=== PATIENT | male | born 2000 | race Caucasian/White ===

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

== ENCOUNTER 2018-01-05 08:42 | Observation (INO) | payer SELFPAY ==
[~2018-01-05] VITALS: Ht 185.4 cm; Wt 76.4 kg
[2018-01-05] MEDS ORDERED: NS IV 1000 ML 1,000 ML IV ONE (09:34)
[2018-01-05 09:58] LABS: BASOPHILS # (AUTO) 0.1 10^3/uL (0.0-0.1); BASOPHILS % (AUTO) 0 % (0-10); EOSINOPHILS % (AUTO) 0 % (0-10); HEMATOCRIT 42 % (40-54); LYMPHOCYTES # (AUTO) 1.3 X 10^3 (1.0-4.0); LYMPHOCYTES % (AUTO) 4 % (12-44); MEAN CORPUSCULAR HEMOGLOBIN 31 PG (25-34); MEAN CORPUSCULAR HGB CONC 36 G/DL (32-36); MEAN CORPUSCULAR VOLUME 86 FL (80-99); MEAN PLATELET VOLUME 9.8 FL (7.4-10.4); MONOCYTES # (AUTO) 2.1 X 10^3 (0.0-1.0); MONOCYTES % (AUTO) 6 % (0-12); NEUTROPHILS # (AUTO) 34.1 X 10^3 (1.8-7.8); NEUTROPHILS % (AUTO) 91 % (42-75); PLATELET COUNT 225 10^3/uL (130-400); RED BLOOD COUNT 4.88 10^6/uL (4.35-5.85); RED CELL DISTRIBUTION WIDTH 13.3 % (10.0-14.5)
[2018-01-05 09:59] LABS: WHITE BLOOD COUNT 37.6 10^3/uL (4.3-11.0)
[2018-01-05] MEDS ORDERED: HURRICAINE EXT TUBE (BENZOCAINE) ONE (10:07)
[2018-01-05] MEDS: LIDOCAINE 1% INJ 20 ML 20 ML VIAL ONE ×2 (10:10→10:30)
[2018-01-05] MEDS ORDERED: LIDOCAINE/EPI 2% 1:100,00 (XYLOCAINE) 20 ML VIAL ONE (10:14)
[2018-01-05 10:22] LABS: ALANINE AMINOTRANSFERASE 13 U/L (0-55); ALBUMIN 4.4 GM/DL (3.2-4.5); ALKALINE PHOSPHATASE 52 U/L (40-136); BILIRUBIN,TOTAL 1.8 MG/DL (0.1-1.0); BUN/CREATININE RATIO 15; CALCIUM 9.8 MG/DL (8.5-10.1); CARBON DIOXIDE 23 MMOL/L (21-32); CHLORIDE 102 MMOL/L (98-107); CREATININE SERUM 0.73 MG/DL (0.60-1.30); GFR ESTIMATED > 60; GLUCOSE 96 MG/DL (70-105); POTASSIUM 4.6 MMOL/L (3.6-5.0); SODIUM 134 MMOL/L (135-145); TOTAL PROTEIN 7.5 GM/DL (6.4-8.2)
[2018-01-05 10:35] LABS: BAND NEUTROPHILS 2 %; BASOPHILS % (MANUAL) 0 %; EOSINOPHILS % (MANUAL) 0 %; LYMPHOCYTES % (MANUAL) 6 %; MONOCYTES % (MANUAL) 6 %; NEUTROPHILS % (MANUAL) 86 %; RBC MORPH NORMAL
[2018-01-05] MEDS ORDERED: DEXAMETHASONE PF 10 MG/ML (DECADRON) VIAL IV STA (10:43)
[2018-01-05] MEDS ORDERED: CEFUROXIME INJECTION 1,500 MG in NS (IVPB) 50 ML IV ONE (10:45)
--- NOTE | 2018-01-05 10:59 | ED EENT ---
History of Present Illness General Chief Complaint: Oral/Throat Problems Stated Complaint: THROAT ISSUES Nursing Triage Note: ARRIVED VIA AMB TO ROOM 05. STATES HE WAS SEEN HERE TWO WEEKS AGO WITH AN ABSCESS IN HIS THROAT. HAS FINISHED HIS ABX BUT STATES ITS BACK. Source: patient Exam Limitations: no limitations History of Present Illness Date Seen by Provider: Jan 05, 2018 Time Seen by Provider: 09:30 Initial Comments Here with markedly increasing swelling in his throat. He was seen previously for peritonsillar abscess and was admitted to the hospital. Subsequently released and was on outpatient antibiotics which she finished approximately 2-3 days ago. Was doing much better until last night when he noted that the swelling was markedly increasing and that worse until this morning when it became more unbearable. He is able to swallow fluids but unable to swallow food. Denies fever. Did have this abscess previously drained on previous visit. Timing/Duration: abrupt Severity: moderate Location: throat Prearrival Treatment: prescription meds Associated Symptoms: No cough, No fever, No nasal congestion/drainage, No poor fluid intake; poor solids intake, sore throat, voice change Allergies and Home Medications Allergies Coded Allergies: No Known Drug Allergies (Unverified , 10/29/11) Home Medications No Active Prescriptions or Reported Meds Patient Home Medication List Home Medication List Reviewed: Yes Review of Systems Constitutional: see HPI; No chills, No fever Eyes: No Symptoms Reported Ears: No Symptoms Reported Nose: no symptoms reported Mouth: no symptoms reported Throat: see HPI, pain, swelling, muffled, painful swallowing Respiratory: no symptoms reported Cardiovascular: no symptoms reported All Other Systems Reviewed Negative Unless Noted: Yes Past Tqobcvz-Ugojdz-Vurpgl Hx Past Med/Social Hx: Reviewed Nursing Past Med/Soc Hx Patient Social History Alcohol Use: Denies Use Recreational Drug Use: No Smoking Status: Never a Smoker Type Used: Cigarettes Recent Foreign Travel: No Contact w/Someone Who Travel: No Recent Infectious Disease Expo: No Recent Hopitalizations: No Seasonal Allergies Seasonal Allergies: No Past Medical History Surgeries: No Respiratory: No Cardiac: No Neurological: No Genitourinary: No Gastrointestinal: No Musculoskeletal: No Endocrine: No HEENT: No Cancer: No Psychosocial: No Integumentary: No Blood Disorders: No Family Medical History Reviewed Nursing Family Hx No Pertinent Family Hx Physical Exam Vital Signs Vital Signs - First Documented 01/05/18 08:55 Temp 99.3 Pulse 101 Resp 18 B/P (MAP) 139/97 General Appearance: WD/WN, no apparent distress Eyes: bilateral eye normal inspection, bilateral eye PERRL, bilateral eye EOMI Ears: bilateral ear auricle normal, bilateral ear canal normal, bilateral ear TM normal Nose: normal inspection Mouth/Throat: pharynx swelling, pharynx tenderness, tonsillar exudate, tonsillar swelling, voice changes, other (swelling to the left tonsillar pillar that encroaches on to the soft and hard palate on the left.) Neck: full range of motion, supple, lymphadenopathy (L) Cardiovascular: no murmur, tachycardia Respiratory: lungs clear, normal breath sounds Gastrointestinal: non tender, soft Neurologic/Psychiatric: alert, oriented x 3 Skin: normal color, warm/dry Progress/Results/Core Measures Results/Orders Lab Results Laboratory Tests Test 01/05/18 09:49 Range/Units White Blood Count 37.6 *H 4.3-11.0 10^3/uL Red Blood Count 4.88 4.35-5.85 10^6/uL Hemoglobin 15.0 13.3-17.7 G/DL Hematocrit 42 40-54 % Mean Corpuscular Volume 86 80-99 FL Mean Corpuscular Hemoglobin 31 25-34 PG Mean Corpuscular Hemoglobin Concent 36 32-36 G/DL Red Cell Distribution Width 13.3 10.0-14.5 % Platelet Count 225 130-400 10^3/uL Mean Platelet Volume 9.8 7.4-10.4 FL Neutrophils (%) (Auto) 91 H 42-75 % Lymphocytes (%) (Auto) 4 L 12-44 % Monocytes (%) (Auto) 6 0-12 % Eosinophils (%) (Auto) 0 0-10 % Basophils (%) (Auto) 0 0-10 % Neutrophils # (Auto) 34.1 H 1.8-7.8 X 10^3 Lymphocytes # (Auto) 1.3 1.0-4.0 X 10^3 Monocytes # (Auto) 2.1 H 0.0-1.0 X 10^3 Eosinophils # (Auto) 0.0 0.0-0.3 10^3/uL Basophils # (Auto) 0.1 0.0-0.1 10^3/uL Neutrophils % (Manual) 86 % Lymphocytes % (Manual) 6 % Monocytes % (Manual) 6 % Eosinophils % (Manual) 0 % Basophils % (Manual) 0 % Band Neutrophils 2 % Blood Morphology Comment NORMAL Sodium Level 134 L 135-145 MMOL/L Potassium Level 4.6 3.6-5.0 MMOL/L Chloride Level 102 98-107 MMOL/L Carbon Dioxide Level 23 21-32 MMOL/L Anion Gap 9 5-14 MMOL/L Blood Urea Nitrogen 11 7-18 MG/DL Creatinine 0.73 0.60-1.30 MG/DL Estimat Glomerular Filtration Rate > 60 BUN/Creatinine Ratio 15 Glucose Level 96 70-105 MG/DL Calcium Level 9.8 8.5-10.1 MG/DL Total Bilirubin 1.8 H 0.1-1.0 MG/DL Aspartate Amino Transf (AST/SGOT) 11 5-34 U/L Alanine Aminotransferase (ALT/SGPT) 13 0-55 U/L Alkaline Phosphatase 52 40-136 U/L C-Reactive Protein High Sensitivity 6.19 H 0.00-0.50 MG/DL Total Protein 7.5 6.4-8.2 GM/DL Albumin 4.4 3.2-4.5 GM/DL My Orders Orders - LANCE MENDIOLA MD Cbc With Automated Diff (01/05/18 09:34) Comprehensive Metabolic Panel (01/05/18 09:34) Hs C Reactive Protein (01/05/18 09:34) Saline Lock/Iv-Start (01/05/18 09:34) Ns Iv 1000 Ml (Sodium Chloride 0.9%) (01/05/18 09:34) Manual Differential (01/05/18 09:49) Benzocaine Extension Tube (Hurricaine Ex (01/05/18 10:07) Lidocaine 1% Inj 20 Ml (Xylocaine 1% Inj (01/05/18 10:08) Lidocaine/Epi 2% 1:100,000 (Xylocaine/Ep (01/05/18 10:14) Dexamethasone Pf Injection (Decadron Pf (01/05/18 10:43) Cefuroxime Injection (Zinacef Injection) (01/05/18 10:45) Medications Given in ED Current Medications Medications Dose Ordered Sig/Racquel Route Start Time Stop Time Status Last Admin Dose Admin Benzocaine 1 ea STK-MED ONCE .ROUTE 01/05/18 10:07 01/05/18 10:10 DC 01/05/18 10:11 1 EA Lidocaine/ Epinephrine 20 ml STK-MED ONCE .ROUTE 01/05/18 10:14 01/05/18 10:16 DC 01/05/18 10:29 20 ML Sodium Chloride 1,000 ml @ 0 mls/hr Q0M ONCE IV 01/05/18 09:34 01/05/18 09:36 DC 01/05/18 10:10 1,000 MLS/HR Vital Signs/I&O 01/05/18 08:55 Temp 99.3 Pulse 101 Resp 18 B/P (MAP) 139/97 Progress Progress Note : Progress Note Seen and evaluated. I did call and talked with Dr. Steele. 0953. 1020: Dr. Steele is in the ER and is performing I&D of the abscess. 1035: Dr. Steele will admit. Cefuroxime 1.5 g IV and Decadron 10 mg IV ordered. Admit observation status. Patient and family agree with plan. Departure Impression Primary Impression: Peritonsillar abscess Disposition: ADMITTED INPATIENT Condition: Stable Admissions Decision to Admit Reason: Admit from ER (General) Decision to Admit/Date: Jan 05, 2018 Time/Decision to Admit Time: 10:35 Departure-Patient Inst. Referrals: NO,LOCAL PHYSICIAN (PCP/Family) Primary Care Physician Scripts No Active Prescriptions or Reported Meds LANCE MENDIOLA MD Jan 05, 2018 10:59
[2018-01-05 11:40] VITALS: BP 122/66
[2018-01-05] MEDS ORDERED: HYDROcodone/APAP 7.5MG-325 MG/15 ML (LORTAB) UDC PO PRN (12:00)
[2018-01-05] MEDS ORDERED: CATHETER FLUSH 10 ML SYR IV PRN (12:00)
[2018-01-05] MEDS ORDERED: DEXAMETHASONE 10 MG/ML (DECADRON) 1 ML VIAL IV SCH (12:00)
[2018-01-05 12:01] VITALS: BP 128/78
[2018-01-05] MEDS ORDERED: RT-ALBUTEROL/IPRATROPIUM 3 ML (DUONEB) VIAL INH PRN (12:15)
[2018-01-05] MEDS: NS IV 1000 ML 1,000 ML IV SCH (12:56)
[2018-01-05 16:00] VITALS: BP 125/56
[2018-01-05] MEDS: DEXAMETHASONE 10 MG/ML (DECADRON) 1 ML VIAL IV SCH ×2 (18:27→23:51)
[2018-01-05 20:00] VITALS: BP 102/56
[2018-01-05] MEDS: CEFUROXIME 1.5 GM/NS 50 ML IVPB IV SCH ×2 (20:45)
[2018-01-05 23:54] VITALS: BP 118/72
[2018-01-06] MEDS: NS IV 1000 ML 1,000 ML IV SCH ×3 (03:30→18:22)
[2018-01-06 04:00] VITALS: BP 110/54
[2018-01-06] MEDS: DEXAMETHASONE 10 MG/ML (DECADRON) 1 ML VIAL IV SCH ×3 (06:03→21:41)
[2018-01-06 06:30] LABS: BASOPHILS % (AUTO) 0 % (0-10); EOSINOPHILS % (AUTO) 0 % (0-10); HEMATOCRIT 41 % (40-54); HEMOGLOBIN 14.4 G/DL (13.3-17.7); LYMPHOCYTES # (AUTO) 0.8 X 10^3 (1.0-4.0); LYMPHOCYTES % (AUTO) 3 % (12-44); MEAN CORPUSCULAR HEMOGLOBIN 30 PG (25-34); MEAN CORPUSCULAR HGB CONC 35 G/DL (32-36); MEAN CORPUSCULAR VOLUME 85 FL (80-99); MONOCYTES # (AUTO) 0.3 X 10^3 (0.0-1.0); MONOCYTES % (AUTO) 1 % (0-12); NEUTROPHILS # (AUTO) 26.7 X 10^3 (1.8-7.8); NEUTROPHILS % (AUTO) 96 % (42-75); PLATELET COUNT 235 10^3/uL (130-400); RED BLOOD COUNT 4.84 10^6/uL (4.35-5.85); RED CELL DISTRIBUTION WIDTH 13.2 % (10.0-14.5); WHITE BLOOD COUNT 27.8 10^3/uL (4.3-11.0)
[2018-01-06] MEDS: CEFUROXIME 1.5 GM/NS 50 ML IVPB IV SCH ×6 (06:42→22:21)
[2018-01-06 06:45] LABS: BUN/CREATININE RATIO 15; CALCIUM 9.6 MG/DL (8.5-10.1); CARBON DIOXIDE 20 MMOL/L (21-32); CHLORIDE 105 MMOL/L (98-107); CREATININE SERUM 0.67 MG/DL (0.60-1.30); GFR ESTIMATED > 60; GLUCOSE 176 MG/DL (70-105); POTASSIUM 4.5 MMOL/L (3.6-5.0); SODIUM 135 MMOL/L (135-145)
--- NOTE | 2018-01-06 07:05 | Progress Note-Standard ---
Standard Progress Note Progress Notes/Assess & Plan Date Seen by Provider: Jan 06, 2018 Time Seen by Provider: 06:30 Progress/Assessment & Plan LZT-Rcxwn-Clkgalg/Physical-ER NOTE cc: REcurrent Left Peritonsillar Abscess HPI: Patient cici in [facility] over two weeks ago with a left peritonsillar abscess. It was drained. He went home with oral ceftin and prednisone. While on the antibiotics he did well. Two days after finishing the antibiotics he walker had recurrent symptoms on the left side. It has progressively worsened. He presented to [facility] ER this am with marked swelling and a recurrence of his abscess. WBC-37. This is the second abscess he has had. PMHX: unremarkable ALL-NKDA Meds-none currently Exam: EArs-clear Nose-no drainage Oral CAvity-mild trismus-marked swelling of the soft palate and tonsil in general-obvious abscess formation noted. Neck-tender left neck nodes. Procedure: Consent obtained. [facility] oral cvity was anesthetized with hurricane spray. Further anesthesia was obtained iwth 2% xylocaine iwth 1:100,000 epinephrine injectd into the region of the abscess. A protected 11 blade was used to make the incision. Immediately pus was present. A tonsil clamp was then used to widely open the abscess cavity both superiorly and inferiorly. A large amount of pus was [id number] in what appeared to be two abscess cavities one superiorly and one more inferiorly. Minimal bleeding occurred. IMP: Large REcurrent left peritonsillar abscess Rec: 1. The abscess was drained as above. ADmission for IV cefuroxime and decadron was recommended. REpeat CBC in am. T/A diet as tolerated 2. Since this has been recurrent will need to treat and then once better would recommend removal fo the tonsils-probaly late January- Xin-01/06-630am Doing much better -less pain with less trismus-able to tolerate diet cbc pending this am OC-no trismus-tonsil back in it's normal position-minimal exudate seen Neck-less tender IMP-Recurrent Left PEritonsillar Abscess REc: 1. would rec 24 more hours of IV antibiotic and steroids then home tomorrow as long as doing well. Will need adama on antibiotics and steroids-since recurrent rec tonsillectomy once better-probably in late sjfc-CCR-euea done wit [facility] antibiotics to [place]ali[place] the surgery ARMIDA MOE MD Jan 06, 2018 7:05 am
[2018-01-06 08:00] VITALS: BP 110/54
[2018-01-06] MEDS: NICOTINE 14 MG (NICODERM) PATCH TD SCH (10:52)
[2018-01-06 12:00] VITALS: BP 110/58
[2018-01-06] MEDS ORDERED: DEXAMETHASONE 4 MG/ML SDV (DECADRON) IV SCH (14:00)
[2018-01-06 15:27] VITALS: BP 120/65
[2018-01-06 19:25] VITALS: BP 114/55
[2018-01-07 00:04] VITALS: BP 121/59
[2018-01-07 04:19] VITALS: BP 97/46
[2018-01-07] MEDS: DEXAMETHASONE 10 MG/ML (DECADRON) 1 ML VIAL IV SCH (05:13)
[2018-01-07] MEDS: CEFUROXIME 1.5 GM/NS 50 ML IVPB IV SCH ×2 (06:07)
--- NOTE | 2018-01-07 06:08 | Progress Note-Standard ---
Standard Progress Note Progress Notes/Assess & Plan Date Seen by Provider: Jan 07, 2018 Time Seen by Provider: 06:00 Progress/Assessment & Plan XME-Dtenu-Nlkinix/Physical-ER NOTE cc: REcurrent Left Peritonsillar Abscess HPI: Patient cici in [facility] over two weeks ago with a left peritonsillar abscess. It was drained. He went home with oral ceftin and prednisone. While on the antibiotics he did well. Two days after finishing the antibiotics he walker had recurrent symptoms on the left side. It has progressively worsened. He presented to [facility] ER this am with marked swelling and a recurrence of his abscess. WBC-37. This is the second abscess he has had. PMHX: unremarkable ALL-NKDA Meds-none currently Exam: EArs-clear Nose-no drainage Oral CAvity-mild trismus-marked swelling of the soft palate and tonsil in general-obvious abscess formation noted. Neck-tender left neck nodes. Procedure: Consent obtained. [facility] oral cvity was anesthetized with hurricane spray. Further anesthesia was obtained iwth 2% xylocaine iwth 1:100,000 epinephrine injectd into the region of the abscess. A protected 11 blade was used to make the incision. Immediately pus was present. A tonsil clamp was then used to widely open the abscess cavity both superiorly and inferiorly. A large amount of pus was [id number]-[id number] in what appeared to be two abscess cavities one superiorly and one more inferiorly. Minimal bleeding occurred. IMP: Large REcurrent left peritonsillar abscess Rec: 1. The abscess was drained as above. ADmission for IV cefuroxime and decadron was recommended. REpeat CBC in am. T/A diet as tolerated 2. Since this has been recurrent will need to treat and then once better would recommend removal fo the tonsils-probaly late January- Xin-01/06-630am Doing much better -less pain with less trismus-able to tolerate diet cbc pending this am OC-no trismus-tonsil back in it's normal position-minimal exudate seen Neck-less tender IMP-Recurrent Left PEritonsillar Abscess REc: 1. would rec 24 more hours of IV antibiotic and steroids then home tomorrow as long as doing well. Will need adama on antibiotics and steroids-since recurrent rec tonsillectomy once better-probably in late omqe-VFI-afvo done wit [facility] antibiotics to [place] the surgery ENT-Genesis doing better WBC-decreaeing back toward normal pain improved op-no evidence of recurrent swelling-able to shamir diet will discharge after brakfast discharge prescriptions in chart RTC-2 weeks plan on tonsillectomy later in January ARMIDA MOE MD Jan 07, 2018 6:08 am
[2018-01-07] MEDS ORDERED: PRD20T PO (07:54)
[2018-01-07] MEDS ORDERED: CEFU250T80 PO (07:54)
[2018-01-07 08:00] VITALS: BP 107/56
[2018-01-07] MEDS: NICOTINE 14 MG (NICODERM) PATCH TD SCH (08:03)
[2018-01-07] MEDS ORDERED: PATCH REMOVAL TP SCH (08:59)
== END 2018-01-07 06:08 | disposition home or self-care (01) ==
LOC: EDUNIT# 08:42 → ER 08:44 → UNDOADMOB 10:39 → 4TH 10:39 → UNDODISOB 01-07 08:47
PROVIDERS: ADMIT Otolaryngology Otolaryngology/Facial Plastic Surgery; ATTEND Otolaryngology Otolaryngology/Facial Plastic Surgery
DX: J36 Peritonsillar abscess (principal); F17.210 Nicotine dependence, cigarettes, uncomplicated
CPT/HCPCS: 36415; 80048; 80053; 85007; 85025; 85027; 86141; 94760; 96361; 96374; 96375; G0378

== ENCOUNTER 2018-01-27 10:33 | Emergency (ER) | payer SELFPAY ==
[~2018-01-27] VITALS: Ht 182.9 cm; Wt 72.6 kg
[~2018-01-27 10:33] MED LIST changes: +CEFU250T80 PO; +PRD20T PO
--- OUTSIDE RECORDS SUMMARY | 2018-01-27 10:37 | XMS REPORT | Continuity of Care Document ---
Author Author [facility] Address Unknown Phone Unavailable Allergies There is no data. Medications There is no data. Problems Date Dx Coded Attending Type Code Diagnosis Diagnosed By 03/14/2012 ELANA LOVE MD V58.69 taking high-risk medication 03/14/2012 V58.69 taking high- risk medication Procedures There is no data. Results There is no data. Encounters ACCT No. Visit Date/Time Discharge Status Pt. Type Provider Facility Loc./Unit Complaint [id number] 07/18/2012 16:18:00 07/18/2012 23:59:59 [facility] [place] [id number] 02/17/2012 00:00:00 02/17/2012 23:59:59 [facility] Outpatient
[2018-01-27 11:56] LABS: BASOPHILS % (AUTO) 0 % (0-10); EOSINOPHILS % (AUTO) 0 % (0-10); HEMATOCRIT 41 % (40-54); HEMOGLOBIN 14.4 G/DL (13.3-17.7); LYMPHOCYTES # (AUTO) 1.1 X 10^3 (1.0-4.0); LYMPHOCYTES % (AUTO) 10 % (12-44); MEAN CORPUSCULAR HEMOGLOBIN 31 PG (25-34); MEAN CORPUSCULAR HGB CONC 35 G/DL (32-36); MEAN CORPUSCULAR VOLUME 89 FL (80-99); MEAN PLATELET VOLUME 10.6 FL (7.4-10.4); MONOCYTES # (AUTO) 0.8 X 10^3 (0.0-1.0); MONOCYTES % (AUTO) 7 % (0-12); NEUTROPHILS # (AUTO) 9.7 X 10^3 (1.8-7.8); NEUTROPHILS % (AUTO) 83 % (42-75); PLATELET COUNT 132 10^3/uL (130-400); RED BLOOD COUNT 4.58 10^6/uL (4.35-5.85); RED CELL DISTRIBUTION WIDTH 14.4 % (10.0-14.5); WHITE BLOOD COUNT 11.7 10^3/uL (4.3-11.0)
--- NOTE | 2018-01-27 11:59 | ED EENT ---
History of Present Illness General Chief Complaint: Oral/Throat Problems Stated Complaint: THROAT ABCESS Nursing Triage Note: Pt reports sore throat starting 3 days ago. Pt reports this is his 3rd visit for same symptoms. pt had abscessed drained twice. Source: patient Exam Limitations: no limitations History of Present Illness Date Seen by Provider: Jan 27, 2018 Time Seen by Provider: 11:45 Initial Comments Patient is a 17-year-old male who presents to the emergency room with complaints of left peritonsillar abscess that started 3 days ago. Over the course of the month this is his third peritonsillar abscess on the left side. He has been admitted previously and had I&D's by Dr. Steele. While in the emergency room he stated that it has started to drain. He is spitting up purulent yellow discharge. There is no bleeding noted. Timing/Duration: other (3 days ago. ) Location: throat Prearrival Treatment: other Modifying Factors: Improves With Antibiotics Associated Symptoms: No facial pain/swelling, No fever, No sinus infection; sore throat; No voice change Allergies and Home Medications Allergies Coded Allergies: No Known Drug Allergies (Unverified , 01/05/18) Home Medications Cefuroxime Axetil 250 Mg Tablet, 250 MG PO BID Prescribed by: MAULKI WEATHERS on 01/07/18 0754 Cefuroxime Axetil 250 Mg Tablet, 250 MG PO BID Prescribed by: DENNYS KANG on 01/27/18 1312 Prednisone 20 Mg Tab, 20 MG PO UD TAKE 2 TABS FOR 4 DAYS, THEN TAKE 1 TAB FOR 4 DAYS Prescribed by: MAULIK WEATHERS on 01/07/18 0754 Prednisone 20 Mg Tab, 20 MG PO UD 3 tabs for 3 days 2 tabs for 3 days 1 tab for 3 days Prescribed by: DENNYS KANG on 01/27/18 1312 Patient Home Medication List Home Medication List Reviewed: Yes Review of Systems Constitutional: see HPI; No chills, No fever, No malaise, No weakness Throat: see HPI, pain, swelling, discharge; denies hoarse, denies muffled; painful swallowing; denies difficulty with fluids, denies previous injury All Other Systems Reviewed Negative Unless Noted: Yes Past Rnpkgoo-Jtaxnq-Chmyvo Hx Past Med/Social Hx: Reviewed Nursing Past Med/Soc Hx Patient Social History Alcohol Use: Denies Use Recreational Drug Use: No Smoking Status: Current Everyday Smoker Type Used: Cigarettes Recent Foreign Travel: No Contact w/Someone Who Travel: No Recent Infectious Disease Expo: No Recent Hopitalizations: No Seasonal Allergies Seasonal Allergies: No Past Medical History Surgeries: Yes Respiratory: No Cardiac: No Neurological: No Genitourinary: No Gastrointestinal: No Musculoskeletal: No Endocrine: No HEENT: No Cancer: No Psychosocial: Yes Integumentary: No Blood Disorders: No Family Medical History Reviewed Nursing Family Hx No Pertinent Family Hx Physical Exam Vital Signs Vital Signs - First Documented 01/27/18 01/27/18 10:41 13:52 Temp 98.3 Pulse 99 Resp 18 B/P (MAP) 119/69 Pulse Ox 100 O2 Delivery Room Air Height, Weight, BMI Height: 6'0" Weight: 160lbs. 6.0oz. 72.883631vf; 21.70 BMI Method:Stated General Appearance: WD/WN, no apparent distress Mouth/Throat: tonsillar exudate (the left peritonsillar abscess is open and draining. I believe this to be from previous I&D.), tonsillar swelling, uvula swelling (swelling and slight deviation to the right); No voice changes Cardiovascular: regular rate, rhythm, no edema, no gallop, no JVD, no murmur Respiratory: chest non-tender, lungs clear, normal breath sounds, no respiratory distress, no accessory muscle use Neurologic/Psychiatric: alert, normal mood/affect, oriented x 3 Progress/Results/Core Measures Results/Orders Lab Results My Orders Medications Given in ED Vital Signs/I&O Progress Progress Note : Time: 11:50 Progress Note I have seen and evaluated the patient. I spoke to Lydia Steele's nurse practitioner and she reports that she saw him on Tuesday and that there was no abscess at that time. She recommends a CT soft tissue of his neck with contrast and 10 mg of IV Decadron and 1/2 g of cefoxitin. Since the abscess is draining she does not believe that it is to be I&D. She recommends outpatient therapy Ceftin 250 mg twice a day for 10 days and prednisone 20 mg taper. 1300: The abscess is smaller than when he arrived. It continues to drain. He is receiving his IV antibiotics and has been instructed to take medication as directed. He agrees with plans of discharge. Departure Impression Primary Impression: Peritonsillar abscess Disposition: 01 HOME, SELF-CARE Condition: Stable/Unchanged Departure-Patient Inst. Decision time for Depature: 13:07 Referrals: ARMIDA STEELE MD NO,LOCAL PHYSICIAN (PCP) Primary Care Physician Patient Instructions: Peritonsillar Abscess, Adult (DC) Add. Discharge Instructions: Take medication as directed. Return back to the emergency room for increased swelling, shortness of breath, muffled hot potato voice, or any other concerns as needed. Follow up with Dr. Steele's office within 1 week for recheck. Call first thing Tuesday morning for appointment time. All discharge instructions reviewed with patient and/or family. Voiced understanding. Scripts Prednisone (Prednisone) 20 Mg Tab 20 MG PO UD, #18 TAB 3 tabs for 3 days 2 tabs for 3 days 1 tab for 3 days Prov: DENNYS KANG 01/27/18 Cefuroxime Axetil (Cefuroxime) 250 Mg Tablet 250 MG PO BID for 10 Days, #20 TAB Prov: DENNYS KANG 01/27/18 DENNYS KANG Jan 27, 2018 11:59
[2018-01-27 12:15] LABS: ALANINE AMINOTRANSFERASE 10 U/L (0-55); ALBUMIN 4.5 GM/DL (3.2-4.5); ALKALINE PHOSPHATASE 46 U/L (40-136); BILIRUBIN,TOTAL 1.4 MG/DL (0.1-1.0); BUN/CREATININE RATIO 10; CALCIUM 9.8 MG/DL (8.5-10.1); CARBON DIOXIDE 28 MMOL/L (21-32); CHLORIDE 105 MMOL/L (98-107); CREATININE SERUM 0.71 MG/DL (0.60-1.30); GFR ESTIMATED > 60; GLUCOSE 101 MG/DL (70-105); POTASSIUM 4.3 MMOL/L (3.6-5.0); SODIUM 138 MMOL/L (135-145); TOTAL PROTEIN 7.1 GM/DL (6.4-8.2)
[2018-01-27] MEDS ORDERED: NS 250 ML (IVPB) BAG IV ONE (12:30)
[2018-01-27] MEDS ORDERED: IOHEXOL 350 MG/ML 100 ML (OMNIPAQUE 350) VIAL IV ONE (12:30)
[2018-01-27] MEDS ORDERED: CEFUROXIME INJECTION 1,500 MG in NS (IVPB) 50 ML IV ONE (12:45)
[2018-01-27] MEDS ORDERED: DEXAMETHASONE 10 MG/ML (DECADRON) 1 ML VIAL IV ONE (12:45)
--- NOTE | 2018-01-27 12:53 | Diagnostic Imaging Report ---
PROCEDURE: CT neck soft tissue with contrast. TECHNIQUE: Multiple contiguous axial images were obtained through the neck after the administration of contrast. INDICATION: Tonsillar abscess, neck pain. COMPARISON: Exam compared to 12/23/2017. FINDINGS: Left peritonsillar abscess in axial plane today measures 2.8 x 1.9 cm with roughly 2.9 cm cephalocaudal extent on the reconstruction views. Its previous dimensions were 3.3 x 2.1 x 4.8 cm respectively reflects mild interval reduction in size. Thickening of the uvula eccentric to the left is unchanged with unchanged rightward displacement of the gene and upper hypopharynx. The vocal folds and aryepiglottic folds are unremarkable. The infra-laryngeal trachea is widely patent. Small amount of edema or fluid tracking caudally along the retropharyngeal space is slightly less extensive than on prior. No new fluid collection is found. Some reactive cervical lymphadenopathy in the left neck shows a mild interval reduction. No bony destruction. No findings of intrathoracic or superior mediastinal extension of infection. No evidence for intracerebral extension. IMPRESSION: Peritonsillar left-sided abscess is smaller than on prior with decreased edema or fluid tracking caudally along the retropharyngeal space. Similar mass effect upon the airway without involvement of the vocal folds or epiglottis. Cervical lymphadenopathy, left greater than right, shows a mild reduction. No bony destruction. No findings suggestive of intracranial or thoracic extension of infection. Dictated by: Dictated on workstation # [id number]
[2018-01-27] MEDS ORDERED: PRD20T PO (13:12)
[2018-01-27] MEDS ORDERED: CEFU250T80 PO (13:12)
== END 2018-01-27 13:52 | disposition home or self-care (01) ==
LOC: EDUNIT# 10:33 → ER 10:34
DX: J39.0 Retropharyngeal and parapharyngeal abscess (principal); F17.210 Nicotine dependence, cigarettes, uncomplicated; Z79.52 Long term (current) use of systemic steroids
CPT/HCPCS: 36415; 70491; 80053; 85025; 96365; 96375

== ENCOUNTER 2018-10-14 01:17 | Emergency (ER) | payer SELFPAY ==
[~2018-10-14] VITALS: Ht 182.9 cm; Wt 76.7 kg
--- OUTSIDE RECORDS SUMMARY | 2018-10-14 01:24 | XMS REPORT ---
Author Author JILL ADAME [facility] Address [address] [place] [address] Phone Unavailable Care Team Providers Care Financial Systems Director Name Role Phone JILL ADAME Unavailable Unavailable PROBLEMS Type Condition ICD9-CM Code [id number] Code Onset Dates Condition Status SNOMED Code Problem Gastroesophageal reflux disease without esophagitis K21.9 Active 414834306 Problem Encounter for long-term (current) use of other medications V58.69 Active 781218776 ALLERGIES No Information ENCOUNTERS Encounter Location Date Diagnosis [facility] [id number] [place] [address] [phone] Oct, Dental examination Z01.20 [facility] [id number] [place] [address] [id number] Apr, Dental examination Z01.20 [facility] [id number] [place] [address] [phone] Jun, Gastroesophageal reflux disease without esophagitis K21.9 [facility] [id number] [place] [address] [id number] May, Insect bite, initial encounter W57.XXXA [facility] [id number] [address] Oct, [facility] [id number] [place] [id number] Oct, [facility] [id number] [place] [id number] Sep, [facility] [id number] [place] [id number] Jul, [facility] [address] [id number] [id number] Jul, [facility] [id number] [place] [phone] May, [facility] [address] [facility] [id number] [place] [address] May, [facility] [address] [facility] [id number] [address] Apr, [address] [id number] [id number] Apr, [facility] [address] [facility] [id number] [address] Apr, [facility] [address] [facility] [id number] [phone] Mar, IMMUNIZATIONS No Known Immunizations SOCIAL HISTORY Never Assessed REASON FOR VISIT School Fluoride PLAN OF CARE Activity Details Follow Up 6 Months Reason:recall VITAL SIGNS MEDICATIONS Unknown Medications RESULTS No Results PROCEDURES Procedure Date Ordered Result Body Site TOPICAL FLUORIDE VARNISH October 20, 2017 INSTRUCTIONS MEDICATIONS ADMINISTERED No Known Medications
--- OUTSIDE RECORDS SUMMARY | 2018-10-14 01:24 | XMS REPORT ---
Author Author Migration, Doctor Organization [facility] Address Unknown Phone Unavailable Care Team Providers Care E Learning Developer Name Role Phone Migration, Doctor Unavailable Unavailable PROBLEMS Type Condition ICD9-CM Code [id number] Code Onset Dates Condition Status SNOMED Code Problem Encounter for long-term (current) use of other medications V58.69 Active 582092643 Problem Gastroesophageal reflux disease without esophagitis K21.9 Active [id number] ALLERGIES No Information ENCOUNTERS Encounter Location Date Diagnosis [facility] [id number] [place] [phone] Oct, Dental examination Z01.20 [facility] [address] [id number] Apr, Dental examination Z01.20 [facility] [id number] [place] [address] [id number] Jun, Gastroesophageal reflux disease without esophagitis K21.9 [facility] [id number] [place] [address] [id number] 09 May, 2016 Insect bite, initial encounter W57.XXXA [facility] [address] [address] Oct, [facility] [id number] [place] [id number] Oct, [facility] [id number] [place] [address] [id number] Sep, [facility] [id number] [place] [id number] Jul, [facility] [address] [id number] [phone] Jul, [facility] [id number] [phone] May, [facility] [address] [facility] [id number] [place] [address] May, [facility] [address] [facility] [id number], [place] [address] Apr, [facility] [address] [facility] [id number] [id number] Apr, [facility] [address] [facility] [id number], [place] [address] Apr, [facility] [address] [facility] [id number] [id number] Mar, IMMUNIZATIONS No Known Immunizations SOCIAL HISTORY Never Assessed REASON FOR VISIT EMR-[facility] PLAN OF CARE VITAL SIGNS MEDICATIONS Medication Instructions Dosage Frequency Start Date End Date Duration Status Adderall XR 20 mg take 1 capsule (20 mg) by oral route once daily in the morning upon awakening Jul, Active RESULTS No Results PROCEDURES No Known procedures INSTRUCTIONS MEDICATIONS ADMINISTERED No Known Medications
[2018-10-14] MEDS ORDERED: RT-ALBUTEROL/IPRATROPIUM 3 ML (DUONEB) VIAL INH ONE (02:15)
[2018-10-14] MEDS ORDERED: CEFD300C3 PO (02:54)
[2018-10-14] MEDS ORDERED: METH4TAB PO (02:54)
[2018-10-14] MEDS ORDERED: RT-ALBUINH IH (02:54)
[2018-10-14] MEDS ORDERED: BENZ100C18 PO (02:54)
--- NOTE | 2018-10-14 02:55 | ED Cough/URI ---
General Chief Complaint: Cough/Cold/Flu Symptoms Stated Complaint: COUGH, TROUBLE BREATHING Nursing Triage Note: PT AMB TO ROOM #9 W/O DIFFICULTY. A&OX4. C/O COUGH, CONGESTION, AND SOB FOR APPROX X2 DAYS. PT REPORTS HE WAS EXPOSED TO PNA. PT STATES, "I COUGHED SO HARD I VOMITED." PT REPORTS X1 EPISODE OF BLOOD TINGED SPUTUM. DENIES RECENT FEVER OR CHILLS. REPORTS TO SMOKE APPROX X3 PACKS OF CIGARETTES QDAY. Sepsis Screen: No Definite Risk Source: patient History of Present Illness Date Seen by Provider: Oct 14, 2018 Time Seen by Provider: 01:53 Initial Comments PT ARRIVES VIA POV WITH 2 FEMALES IN ROOM STATES HE HAS HAD TROUBLE BREATHING FOR 2 DAYS STATES HE HAS BEEN COUGHING FOR THE LAST 2 DAYS AND LAST NIGHT HE COUGHED SO HARD HE VOMITED ONCE, AND THEN LATER HE COUGHED SO HARD HE COUGHED UP A TINY BIT OF BLOOD TINGED SPUTUM NO FEVER NO HISTORY OF RESPIRATORY PROBLEMS HAS HAD NASAL CONGESTION AND DRAINAGE PT HAS NOT TAKEN ANYTHING FOR SYMPTOMS PT STATES HE SMOKES 3 PPD, AND HAS BEEN SMOKING ALOT MORE THAN THAT THE LAST 2 DAYS, SINCE HE HAS BEEN SICK A FRIEND HAS BEEN ILL WITH SAME-EARLIER THIS WEEK. PCP: NONE Allergies and Home Medications Allergies Coded Allergies: No Known Drug Allergies (Unverified , 01/05/18) Home Medications Albuterol Sulfate 1 Puff Puff, 2 PUFF IH Q4H Prescribed by: AGUSTO MARCELO on 10/14/18253 Benzonatate 100 Mg Capsule, 1-2 TAB PO TID Prescribed by: AGUSTO MARCELO on 10/14/18253 Cefdinir 300 Mg Capsule, 300 MG PO BID Prescribed by: AGUSTO MARCELO on 10/14/18253 Cefuroxime Axetil 250 Mg Tablet, 250 MG PO BID Prescribed by: MAULIK WEATHERS on 01/07/18 0754 Cefuroxime Axetil 250 Mg Tablet, 250 MG PO BID Prescribed by: DENNYS KANG on 01/27/18 1312 Methylprednisolone 4 Mg Tab.ds.pk, 4 MG PO UD Prescribed by: AGUSTO MARCELO on 10/14/18253 Prednisone 20 Mg Tab, 20 MG PO UD TAKE 2 TABS FOR 4 DAYS, THEN TAKE 1 TAB FOR 4 DAYS Prescribed by: MAULIK WEATHERS on 01/07/18 0754 Prednisone 20 Mg Tab, 20 MG PO UD 3 tabs for 3 days 2 tabs for 3 days 1 tab for 3 days Prescribed by: DENNYS KANG on 01/27/18 1312 Patient Home Medication List Home Medication List Reviewed: Yes Review of Systems Review of Systems Constitutional: no symptoms reported EENTM: see HPI, nose congestion Respiratory: see HPI, cough, short of breath Cardiovascular: no symptoms reported Gastrointestinal: no symptoms reported Genitourinary: no symptoms reported Musculoskeletal: no symptoms reported Skin: no symptoms reported Psychiatric/Neurological: No Symptoms Reported Hematologic/Lymphatic: No Symptoms Reported Immunological/Allergic: no symptoms reported Past Avgcyut-Zjqbvh-Kzkysv Hx Patient Social History Alcohol Use: Denies Use Recreational Drug Use: No Smoking Status: Current Everyday Smoker (3 PPD OR MORE) Type Used: Cigarettes (3 PPD OR MORE) 2nd Hand Smoke Exposure: Yes Recent Foreign Travel: No Contact w/Someone Who Travel: No Recent Infectious Disease Expo: No Recent Hopitalizations: No Seasonal Allergies Seasonal Allergies: No Past Medical History Surgeries: Yes (I&D OF TONSILLAR ABSCESS X 2) Respiratory: No Cardiac: No Neurological: No Genitourinary: No Gastrointestinal: No Musculoskeletal: No Endocrine: No HEENT: Yes (TONSILLAR ABSCESS WITH I&D X 2) Tonsilitis Cancer: No Psychosocial: No Integumentary: No Blood Disorders: No Family Medical History No Pertinent Family Hx Physical Exam Vital Signs - First Documented Capillary Refill : Less Than 3 Seconds Height: 6'0" Weight: 169lbs. 6.0oz. 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, no motor/sensory deficits, alert, normal mood/affect, oriented x 3 Skin: normal color, warm/dry, tattoos/piercings Progress/Results/Core Measures Suspected Sepsis Recent Fever Within 48 Hours: No Infection Criteria Present: Suspected New Infection New/Unexplained Altered Menta: No Sepsis Screen: No Definite Risk SIRS Temperature:97.1 Pulse: 69 Respiratory Rate: 18 Blood Pressure 107 /80 Mean: 89 Results/Orders Micro Results Microbiology 10/14/18 Influenza Types A,B Antigen ([facility]INDSAY) - Final, Complete My Orders Orders - AGUSTO MARCELO DO Chest Pa/Lat (2 View) (10/14/18 02:01) Influenza A And B Antigens (10/14/18 02:01) Albuterol/Ipra Inhalation Soln (Duoneb I (10/14/18 02:15) Rt Request For Service (10/14/18 02:01) Svn Small Volume Nebulizer (10/14/18 02:01) Prednisone Tablet (Deltasone Tablet) (10/14/18 03:00) Cefdinir Capsule (Omnicef Capsule) (10/14/18 03:00) Benzonatate Capsule (Tessalon Perles) (10/14/18 03:00) Medications Given in ED Current Medications Medications Dose Ordered Sig/Racquel Route Start Time Stop Time Status Last Admin Dose Admin Albuterol/ Ipratropium 3 ml ONCE ONCE INH 10/14/18 02:15 10/14/18 02:16 DC 10/14/18 02:22 3 ML Cefdinir 300 mg ONCE ONCE PO 10/14/18 03:00 10/14/18 03:01 DC 10/14/18 03:01 300 MG Prednisone 40 mg ONCE ONCE PO 10/14/18 03:00 10/14/18 03:01 DC 10/14/18 03:01 40 MG Vital Signs/I&O 10/14/18 10/14/18 10/14/18 10/14/18 01:55 01:55 02:22 03:05 Temp 97.1 97.1 Pulse 69 80 Resp 18 18 B/P (MAP) 107/80 (89) 123/71 (88) Pulse Ox 96 96 96 O2 Delivery Room Air Room Air Room Air Room Air Capillary Refill : Less Than 3 Seconds Blood Pressure Mean: 89 Progress Note : Progress Note GIVEN NEB TREATMENT, WITH MINIMAL RESIDUAL EXPIRATORY WHEEZING AT DISMISSAL, PT STATES HE HAS USED INHALERS IN THE PAST, YET DENIES ANY HISTORY OF RESPIRATORY PROBLEMS Diagnostic Imaging Comments CXR--NO ACUTE PROCESS, PENDING RADIOLOGIST REVIEW Reviewed: Reviewed by Me Departure Impression Primary Impression: Bronchitis Additional Impressions: Upper respiratory infection Very heavy cigarette smoker Disposition: HOME, SELF-CARE Condition: Improved Departure-Patient Inst. Referrals: NO,LOCAL PHYSICIAN (PCP/Family) Primary Care Physician Patient Instructions: Acute Bronchitis, Adult (DC), Bacterial Upper Respiratory Infection, Adult (DC), Quitting Smoking for Teens and Young Adults, SMOKING CESSATION Add. Discharge Instructions: NO SMOKING!!!! OVER THE COUNTER MUCINEX DM FOR COUGH AND CONGESTION TYLENOL AND MOTRIN NEEDED FOR PAIN OR FEVER FOLLOW UP WITH DRRadha OF [facility] IN 3-4 DAYS IF NO BETTER RETURN TO ER IF WORSE All discharge instructions reviewed with patient and/or family. Voiced understanding. Scripts Benzonatate (TESSALON PERLES) 100 Mg Capsule 1-2 TAB PO TID for Cough, #30 CAP Prov: AGUSTO MARCELO DO 10/14/18 Albuterol Sulfate (PROAIR HFA) 1 Puff Puff 2 PUFF IH Q4H for BREATHING, #1 GM Prov: AGUSTO MARCELO DO 10/14/18 Methylprednisolone (Medrol) 4 Mg Tab.ds.pk 4 MG PO UD, #1 PKG Prov: AGUSTO MARCELO DO 10/14/18 Cefdinir (Cefdinir) 300 Mg Capsule 300 MG PO BID for FOR INFECTION, #20 CAP Prov: AGUSTO MARCELO DO 10/14/18 AGUSTO MARCELO DO Oct 14, 2018 02:54
[2018-10-14] MEDS ORDERED: predniSONE 20 MG TAB PO ONE (03:00)
[2018-10-14] MEDS ORDERED: CEFDINIR 300 MG (OMNICEF) CAP PO ONE (03:00)
[2018-10-14] MEDS ORDERED: BENZONATATE 100 MG (TESSALON) CAPSULE PO SCH (03:00)
[2018-10-14 03:05] VITALS: BP 123/71
--- NOTE | 2018-10-14 07:48 | Diagnostic Imaging Report ---
EXAMINATION: CHEST (PA AND LATERAL) CLINICAL INDICATION: 18-year-old male, shortness of breath. COMPARISON: None. FINDINGS: Heart size and mediastinal contours are unremarkable. There is no identified pneumothorax. There is no pleural effusion. There is no identified focal airspace consolidation. IMPRESSION: No identified acute cardiopulmonary abnormality. Dictated by: Dictated on workstation # [id number]
== END 2018-10-14 03:06 | disposition home or self-care (01) ==
LOC: EDUNIT# 01:17 → ER 01:20
DX: J40 Bronchitis, not specified as acute or chronic (principal); J06.9 Acute upper respiratory infection, unspecified; F17.210 Nicotine dependence, cigarettes, uncomplicated; Z79.52 Long term (current) use of systemic steroids; Z98.890 Other specified postprocedural states
CPT/HCPCS: 71046; 87804; 94640